=== PATIENT | female | born 1990 | race African-American/Black ===

== ENCOUNTER 2018-07-19 14:03 | Emergency (ER) | payer MEDICAID, OTHER ==
--- NOTE | 2018-07-19 16:46 | RADIOLOGY REPORT (SQ) ---
EXAM DESCRIPTION: CHEST 2 VIEWS COMPLETED DATE/TIME: 07/19/2018 4:34 pm REASON FOR STUDY: chest pain COMPARISON: None. EXAM PARAMETERS: NUMBER OF VIEWS: two views TECHNIQUE: Digital Frontal and Lateral radiographic views of the chest acquired. RADIATION DOSE: NA LIMITATIONS: none FINDINGS: LUNGS AND PLEURA: No opacities, masses or pneumothorax. No pleural effusion. MEDIASTINUM AND HILAR STRUCTURES: No masses or contour abnormalities. HEART AND VASCULAR STRUCTURES: Heart normal size. No evidence for failure. BONES: No acute findings. HARDWARE: None in the chest. OTHER: No other significant finding. IMPRESSION: NO ACUTE RADIOGRAPHIC FINDING IN THE CHEST. TECHNICAL DOCUMENTATION: JOB ID: [id number] [employer]- All Rights Reserved Reading location - IP/workstation name: [email or web address]
--- NOTE | 2018-07-19 18:02 | ER Document Report ---
ED General - General Chief Complaint: Chest Pain Stated Complaint: CHEST PAIN Time Seen by Provider: 07/19/18 16:12 Primary Care Provider: AMBIKA ENRIQUEZ DO [NO LOCAL MD] - Follow up in 3-5 days Notes: Patient is a 28-year-old female that presents to the emergency department for chief complaint of chest pain. The patient reports that the pain started for 5 days ago, and has been on and off since that time. The currently rate the pain as 0 out of 10, when she was having it, described as sharp pain, on the left side of the chest, that would come and go, would also be in the middle of the chest, and epigastric at times. Denies any shortness of breath, nausea, vomiting, dysuria, hematuria. Patient denies smoking history, denies history of hypertension, diabetes or hyperlipidemia, denies history of early coronary disease in her family, denies recent travel or prolonged immobilization, or recent surgeries. Past Medical History: Denies chronic medical conditions Past Surgical History: Denies surgical history Social History: Admits to rare alcohol use, denies tobacco or illicit drug use. Family History: Reviewed and noncontributory for presenting illness Allergies: Reviewed, see documented allergy list. REVIEW OF SYSTEMS: Other than noted above, the 12 point review of systems was reviewed with the patient and were negative, all pertinent findings are included in the HPI. PHYSICAL EXAMINATION: Vital signs reviewed, nursing noted reviewed. GENERAL: Well-appearing, well-nourished and in no acute distress. HEAD: Atraumatic, normocephalic. EYES: Eyes appear normal, extraocular movements intact, sclera anicteric, conjunctiva are normal. ENT: nares patent, oropharynx clear without exudates. Moist mucous membranes. NECK: Normal range of motion, supple without lymphadenopathy LUNGS: Breath sounds clear to auscultation bilaterally and equal. No wheezes rales or rhonchi. HEART: Regular rate and rhythm without murmurs ABDOMEN: Soft, nontender, normoactive bowel sounds. No rebound, guarding, or rigidity. No masses appreciated. EXTREMITIES: Nontender, good range of motion, no pitting or edema. NEUROLOGICAL: No focal neurological deficits. Moves all extremities spontaneously Motor and sensory grossly intact on exam. PSYCH: Normal mood, normal affect. SKIN: Warm, Dry, normal turgor, no rashes or lesions noted on exposed skin - Related Data Allergies/Adverse Reactions: No Known Allergies Allergy (Verified 07/19/18 14:06) Past Medical History - Social History Smoking Status: Never Smoker Family History: Reviewed & Not Pertinent Patient has suicidal ideation: No Patient has homicidal ideation: No Renal/ Medical History: Denies: Hx Peritoneal Dialysis Psychiatric Medical History: Reports: Hx Depression Past Surgical History: Reports: Hx Oral Surgery - dental - Immunizations Hx Diphtheria, Pertussis, Tetanus Vaccination: Yes Physical Exam - Vital signs Vitals: Temp Pulse Resp BP Pulse Ox 98.4 F 86 16 125/72 100 07/19/18 14:32 07/19/18 14:32 07/19/18 14:32 07/19/18 14:32 07/19/18 14:32 Course - Re-evaluation Re-evalutation: Patient seen and examined, vital signs reviewed, her EKG was unremarkable, chest x-ray negative as well, patient is low risk for any coronary disease, her heart rate was less than 90, perc criteria negative, at this point of a low suspicion for life-threatening causes of this patient's chest pain, very atypical, and changing, most likely GI related versus muscle skeletal, however she is advised if her symptoms worsen or do not improve, or if she has any further concern that she can always return to the emergency department. Patient agreeable to this plan of care and discharged home. - Vital Signs Vital signs: Temp Pulse Resp BP Pulse Ox 98.4 F 86 16 125/72 100 07/19/18 14:32 07/19/18 14:32 07/19/18 14:32 07/19/18 14:32 07/19/18 14:32 - EKG Interpretation by Me Additional EKG results interpreted by me: EKG demonstrates sinus rhythm with a ventricular rate 67 bpm, normal axis, normal intervals, no evidence of acute ischemia in this EKG, no evidence of dysrhythmias, no prior EKG for comparison. Discharge - Discharge Clinical Impression: Chest pain Qualifiers: Chest pain type: unspecified Qualified Code(s): R07.9 - Chest pain, unspecified Condition: Stable Disposition: HOME, SELF-CARE Instructions: Chest Pain of Unclear Cause ([facility]) Additional Instructions: If you continue to have persistent chest pain or symptoms that concern you, you can always return to the emergency department, or follow-up with the primary care physician, one is been provided with your discharge paperwork, as further workup may be needed as an outpatient including a stress test. You can try [id number] antacid medications such as Pepcid or Zantac, to see if this will help your symptoms Referrals: AMBIKA ENRIQUEZ DO [NO LOCAL MD] - Follow up in 3-5 days
[2018-07-19 18:20] VITALS: BP 124/69
--- NOTE | 2018-07-19 21:11 | EKG REPORT ---
SEVERITY:- NORMAL ECG - SINUS RHYTHM : Confirmed by: Donny Mcfadden 19-Jul-2018 21:10:20
== END 2018-07-19 18:20 | disposition home or self-care (01) ==
LOC: ER 14:03
DX: R07.9 Chest pain, unspecified (principal)
CPT/HCPCS: 71046; 93005; 93010; 99285

== ENCOUNTER 2018-08-09 23:38 | Emergency (ER) | payer OTHER ==
[2018-08-10 01:38] LABS: ABSOLUTE BASOPHILS # (AUTO) 0.1 10^3/uL (0.0-0.2); ABSOLUTE EOSINOPHILS # (AUTO) 0.1 10^3/uL (0.0-0.6); ABSOLUTE MONOCYTES (AUTO) 0.6 10^3/uL (0.1-1.4); ABSOLUTE NEUT (AUTO) 2.4 10^3/uL (1.7-8.2); BASOPHILS % (AUTO) 1.1 % (0-2); EOSINOPHILS % (AUTO) 1.4 % (0-6); HEMATOCRIT 39.6 % (36.0-47.0); HEMOGLOBIN 13.5 g/dL (12.0-15.5); LYMPHOCYTES % (AUTO) 38.9 % (13-45); MEAN CORPUSCULAR HEMOGLOBIN 30.6 pg (27.0-33.4); MEAN CORPUSCULAR VOLUME 90 fl (80-97); MONOCYTES % (AUTO) 11.6 % (3-13); PLATELET COUNT 253 10^3/uL (150-450); RED CELL DISTRIBUTION WIDTH 13.7 % (11.5-14.0); TOTAL CELLS COUNTED % (AUTO) 100 %; WHITE BLOOD COUNT 5.2 10^3/uL (4.0-10.5)
[2018-08-10 01:52] LABS: ANION GAP 7 (5-19); BLOOD UREA NITROGEN 8 mg/dL (7-20); CALCIUM 9.1 mg/dL (8.4-10.2); CARBON DIOXIDE 26 mmol/L (22-30); CHLORIDE 105 mmol/L (98-107); GLUCOSE 93 mg/dL (75-110); POTASSIUM 4.4 mmol/L (3.6-5.0); SODIUM 138.4 mmol/L (137-145)
[2018-08-10 02:11] LABS: APPEARANCE,URINE SLIGHTLY-CLOUDY; BILIRUBIN,URINE NEGATIVE (NEGATIVE); COLOR,URINE YELLOW; GLUCOSE, URINE NEGATIVE (NEGATIVE); KETONES,URINE NEGATIVE (NEGATIVE); LEUKOCYTE ESTERASE,URINE SMALL (NEGATIVE); NITRITE,URINE NEGATIVE (NEGATIVE); PROTEIN,URINE NEGATIVE (NEGATIVE); URINE SPECIFIC GRAVITY 1.021
--- NOTE | 2018-08-10 02:50 | ER Document Report ---
ED General - General Chief Complaint: Rectal Bleeding Stated Complaint: VAGINAL BLEEDING Time Seen by Provider: 08/10/18 01:07 TRAVEL OUTSIDE OF THE [place] IN LAST 30 DAYS: No - HPI Patient complains to provider of: Vaginal bleeding rectal bleeding Notes: Patient presents today for rectal bleeding and vaginal bleeding. Patient states vaginal bleeding ongoing after the patient masturbates. Patient states that she has a vibrator that stimulants her clitoris and after which she will have vaginal bleeding. Patient states that she has a Mirena placed approximately 1 year ago is still feel her strings. Patient denies any trauma. Patient also is coming in for rectal bleeding. Patient denies any anal penetration or anal foreign bodies. Patient states the rectal bleeding has been on going issue for greater than a month however tonight had blood clots. Patient states no change in her stool no constipation no hard stools. Denies fevers chills nausea vomiting diarrhea - Related Data Allergies/Adverse Reactions: No Known Allergies Allergy (Verified 07/19/18 14:06) Past Medical History - Social History Smoking Status: Never Smoker Family History: Reviewed & Not Pertinent Patient has suicidal ideation: No Patient has homicidal ideation: No Renal/ Medical History: Denies: Hx Peritoneal Dialysis Psychiatric Medical History: Reports: Hx Depression Past Surgical History: Reports: Hx Oral Surgery - dental - Immunizations Hx Diphtheria, Pertussis, Tetanus Vaccination: Yes Review of Systems - Review of Systems Constitutional: No symptoms reported EENT: No symptoms reported Cardiovascular: No symptoms reported Respiratory: No symptoms reported Gastrointestinal: Rectal bleeding Genitourinary: No symptoms reported Female Genitourinary: Vaginal bleeding Musculoskeletal: No symptoms reported Skin: No symptoms reported Hematologic/Lymphatic: No symptoms reported Neurological/Psychological: No symptoms reported -: Yes All other systems reviewed and negative Physical Exam - Vital signs Vitals: Temp Pulse Resp BP Pulse Ox 98.0 F 79 16 102/78 100 08/10/18 00:50 08/10/18 00:50 08/10/18 00:50 08/10/18 00:50 08/10/18 00:50 Interpretation: Normal - General General appearance: Appears well, Alert - HEENT Head: Normocephalic, Atraumatic Eyes: Normal Pupils: PERRL - Respiratory Respiratory status: No respiratory distress Chest status: Nontender Breath sounds: Normal Chest palpation: Normal - Cardiovascular Rhythm: Regular Heart sounds: Normal auscultation Murmur: No - Abdominal Inspection: Normal Distension: No distension Bowel sounds: Normal Tenderness: Nontender Organomegaly: No organomegaly - Rectal Notes: No external or internal hemorrhoids felt on rectal examination. There is no ten derness of the rectum. There is a scant amount of blood when I retrieved my finger from the rectum otherwise there is light brown stool present - Genitourinary External exam: Normal Speculum exam: Normal, Other - Strings from Mirena IUD visualized - Back Back: Normal, Nontender - Extremities General upper extremity: Normal inspection, Nontender, Normal color, Normal ROM, Normal temperature General lower extremity: Normal inspection, Nontender, Normal color, Normal ROM, Normal temperature, Normal weight bearing. No: Jose's sign - Neurological Neuro grossly intact: Yes Cognition: Normal Orientation: AAOx4 [place] Coma Scale Eye Opening: Spontaneous Olya Coma Scale Verbal: Oriented Olya Coma Scale Motor: Obeys Commands Olya Coma Scale Total: 15 Speech: Normal Motor strength normal: LUE, RUE, LLE, RLE Sensory: Normal - Psychological Associated symptoms: Normal affect, Normal mood - Skin Skin Temperature: Warm Skin Moisture: Dry Skin Color: Normal Course - Re-evaluation Re-evalutation: 08/10/18 05:07 The patient presents with rectal/ vaginal bleeding without signs of peritonitis or other life-threatening or serious etiology. The patient appears stable for discharge and has been instructed to return immediately if the symptoms worsen in any way, or in 8-12hr if not improved for re-evaluation. The patient has been instructed to return if the symptoms worsen or change in any way. No signs of anemia requiring current treatment. Patient was recommended to follow-up with [facility] [facility] and gastroenterology. - Vital Signs Vital signs: Temp Pulse Resp BP Pulse Ox 98.1 F 80 18 109/70 98 08/10/18 02:51 08/10/18 02:51 08/10/18 02:51 08/10/18 02:51 08/10/18 02:51 - Laboratory Result Diagrams: 08/10/18 01:24 08/10/18 01:24 Laboratory results interpreted by me: 08/10/18 01:35 Urine Urobilinogen 2.0 H Ur Leukocyte Esterase SMALL H Discharge - Discharge Clinical Impression: Vaginal bleeding, Rectal bleeding Condition: Good Disposition: HOME, SELF-CARE Instructions: Gastroenterology, Rectal Bleeding, Unclear Cause ([facility]), Vaginal Bleeding ([facility]) Additional Instructions: Laboratory studies not show any signs of anemia or any other significant pathology. I recommend she follow-up with a GI specialist for colonoscopy to further investigate your rectal bleeding. Your laboratory results not show any signs of today. Please follow-up with your master control engineer or primary care physician for further evaluation of your vaginal bleeding.
[2018-08-10 02:59] VITALS: BP 109/70
== END 2018-08-10 03:08 | disposition home or self-care (01) ==
LOC: ER 23:38
DX: K62.5 Hemorrhage of anus and rectum (principal); N93.9 Abnormal uterine and vaginal bleeding, unspecified; Z97.5 Presence of (intrauterine) contraceptive device
CPT/HCPCS: 36415; 80048; 81001; 84702; 85025; 99284

== ENCOUNTER 2019-02-17 03:23 | Emergency (ER) | payer OTHER ==
[2019-02-17 05:50] LABS: ABSOLUTE BASOPHILS # (AUTO) 0.1 10^3/uL (0.0-0.2); ABSOLUTE EOSINOPHILS # (AUTO) 0.1 10^3/uL (0.0-0.6); ABSOLUTE LYMPHOCYTES (AUTO) 2.2 10^3/uL (0.5-4.7); ABSOLUTE MONOCYTES (AUTO) 0.7 10^3/uL (0.1-1.4); ABSOLUTE NEUT (AUTO) 3.4 10^3/uL (1.7-8.2); BASOPHILS % (AUTO) 0.9 % (0-2); EOSINOPHILS % (AUTO) 1.4 % (0-6); HEMATOCRIT 42.3 % (36.0-47.0); HEMOGLOBIN 14.3 g/dL (12.0-15.5); LYMPHOCYTES % (AUTO) 34.2 % (13-45); MEAN CORPUSCULAR HEMOGLOBIN 30.5 pg (27.0-33.4); MEAN CORPUSCULAR HGB CONC 33.8 g/dL (32.0-36.0); MEAN CORPUSCULAR VOLUME 90 fl (80-97); PLATELET COUNT 295 10^3/uL (150-450); RED BLOOD COUNT 4.69 10^6/uL (3.72-5.28); RED CELL DISTRIBUTION WIDTH 13.7 % (11.5-14.0); SEGMENTED NEUTROPHILS % (AUTO) 52.5 % (42-78); TOTAL CELLS COUNTED % (AUTO) 100 %; WHITE BLOOD COUNT 6.5 10^3/uL (4.0-10.5)
[2019-02-17 06:11] LABS: ALBUMIN 3.9 g/dL (3.5-5.0); ALKALINE PHOSPHATASE 75 U/L (38-126); ANION GAP 10 (5-19); ASPARTATE AMINO TRANSFERASE 17 U/L (14-36); BILIRUBIN,DIRECT 0.1 mg/dL (0.0-0.4); BILIRUBIN,TOTAL 0.3 mg/dL (0.2-1.3); BLOOD UREA NITROGEN 10 mg/dL (7-20); CALCIUM 9.2 mg/dL (8.4-10.2); CARBON DIOXIDE 27 mmol/L (22-30); CHLORIDE 103 mmol/L (98-107); CREATINE KINASE 50 U/L (30-135); GLUCOSE 97 mg/dL (75-110); POTASSIUM 4.4 mmol/L (3.6-5.0)
[2019-02-17 06:22] LABS: CREATINE KINASE MB < 0.22 ng/mL (<4.55); TROPONIN I < 0.012 ng/mL
--- NOTE | 2019-02-17 07:15 | ER Document Report ---
ED General - General Chief Complaint: Chest Pain Stated Complaint: CHEST PAIN Primary Care Provider: [facility] [Primary [facility]] - Follow up as needed Mode of Arrival: Ambulatory Information source: Patient Notes: 28 year old with h/o depression (No SI or HI or hallucinations) presents with 2 months of chest pain. Nothing brings on or makes better. No recent illness. Googled the chest pain and worried and came here. Tired presently. Also concerned about her ovaries. Nonsmoker. TRAVEL OUTSIDE OF THE [place] IN LAST 30 DAYS: No - HPI Patient complains to provider of: chest pain Onset: Other - 2 months Severity: Moderate Associated symptoms: None Exacerbated by: Denies Relieved by: Denies - Related Data Allergies/Adverse Reactions: No Known Allergies Allergy (Verified 07/19/18 14:06) Past Medical History - Social History Smoking Status: Never Smoker Frequency of alcohol use: Rare Drug Abuse: None Family History: Reviewed & Not Pertinent Patient has suicidal ideation: Yes Patient has homicidal ideation: No Renal/ Medical History: Denies: Hx Peritoneal Dialysis Psychiatric Medical History: Reports: Hx Depression Past Surgical History: Reports: Hx Oral Surgery - dental - Immunizations Hx Diphtheria, Pertussis, Tetanus Vaccination: Yes Review of Systems - Review of Systems Constitutional: No symptoms reported EENT: No symptoms reported Cardiovascular: See HPI, Chest pain Respiratory: No symptoms reported Gastrointestinal: No symptoms reported Genitourinary: No symptoms reported Female Genitourinary: No symptoms reported Musculoskeletal: No symptoms reported Skin: No symptoms reported Hematologic/Lymphatic: No symptoms reported Neurological/Psychological: No symptoms reported Physical Exam - Vital signs Vitals: Temp Pulse Resp BP Pulse Ox 98.1 F 101 H 16 126/73 H 97 02/17/19 03:36 02/17/19 03:36 02/17/19 03:36 02/17/19 03:36 02/17/19 03:36 Interpretation: Normal - General General appearance: Appears well, Alert. No: Anxious In distress: None - HEENT Head: Normocephalic Extraocular movements intact: Yes Nasal: Normal Mouth/Lips: Normal Mucous membranes: Normal Pharynx: Normal Neck: Normal - Respiratory Respiratory status: No respiratory distress Chest status: Nontender Breath sounds: Normal Chest palpation: Normal - Cardiovascular Rhythm: Regular - Abdominal Inspection: Normal Distension: No distension Bowel sounds: Normal Tenderness: Nontender - Back Back: Normal - Neurological Neuro grossly intact: Yes Orientation: AAOx4 [place] Coma Scale Eye Opening: Spontaneous [place] Coma Scale Verbal: Oriented Speech: Normal Cranial nerves: Normal - Psychological Associated symptoms: Normal affect, Normal mood. No: Agitated, Angry, Anxious, Auditory hallucinations, Depressed, Flat affect, Paranoid, Uncooperative, Visual hallucinations Course - Re-evaluation Re-evalutation: 02/17/19 08:24 MDM 28 year old with chest pain and no risks for cad. Anxious and has some h/o depression and anxiety. She has googled the symptoms and is now more anx ious. We discussed her symptoms and follow up and return precautions. She does not need further workup at this time in my opinion. - Vital Signs Vital signs: Temp Pulse Resp BP Pulse Ox 98.1 F 101 H 16 126/73 H 97 02/17/19 03:36 02/17/19 03:36 02/17/19 03:36 02/17/19 03:36 02/17/19 03:36 - Laboratory Result Diagrams: 02/17/19 04:55 02/17/19 04:55 - Diagnostic Test Radiology reviewed: Pending - EKG Interpretation by Me Additional EKG results interpreted by me: 02/17/19 08:21 NSR 67 BPM normal axis no st elevation or depression my interpretation. Discharge - Discharge Clinical Impression: Chest pain in adult, Anxiety about health Condition: Good Disposition: HOME, SELF-CARE Instructions: Chest Pain of Unclear Cause ([facility]), Anxiety ([facility]) Additional Instructions: See your primary doctor in follow up. Take ranitidine (zantac) 150 mg twice a day for the next 2 weeks. Please return here for any problems or any concerns. Referrals: [facility] [Primary Care Provider] - Follow up as needed
--- NOTE | 2019-02-17 07:49 | RADIOLOGY REPORT (SQ) ---
CLINICAL HISTORY: chest pain COMPARISON: None. TECHNIQUE: XR CHEST 1 VIEW 02/17/2019 7:09 AM CDT FINDINGS: Cardiac silhouette is normal in size. Lungs are clear without consolidation, atelectasis, mass or edema. There is no pleural effusion. There is no pneumothorax. There are no acute osseous findings. IMPRESSION: Clear lungs.
[2019-02-17 08:42] VITALS: BP 113/73
--- NOTE | 2019-02-18 18:38 | EKG REPORT ---
SEVERITY:- NORMAL ECG - SINUS RHYTHM : Confirmed by: Donny Mcfadden 18-Feb-2019 18:37:50
== END 2019-02-17 08:42 | disposition home or self-care (01) ==
LOC: ER 03:23
DX: R07.9 Chest pain, unspecified (principal); F41.9 Anxiety disorder, unspecified
CPT/HCPCS: 36415; 71045; 80053; 81025; 82550; 82553; 84484; 85025; 93005; 93010; 99285